=== PATIENT | male | born 1990 | race African-American/Black ===

== ENCOUNTER 2022-09-05 18:18 | Inpatient (IN) | payer SELFPAY ==
--- NOTE | 2022-09-05 18:39 | RAD REPORT ---
EXAM DESCRIPTION: CT - Ct Stroke Brain Wo Cont - 09/05/2022 6:28 pm CLINICAL HISTORY: aphasia COMPARISON: none TECHNIQUE: Computed axial tomography of the head was obtained. All CT scans are performed using dose optimization technique as appropriate and may include automated exposure control or mA/KV adjustment according to patient size. FINDINGS: An intracranial bleed is not seen . The ventricles are normal in caliber. No extra-axial fluid collection is noted. Mild to moderate low-density within periventricular, deep and subcortical white matter likely ischemi c changes secondary to small vessel disease Fluid within the sinuses/ mastoids is not seen. IMPRESSION: No acute intracranial abnormality is seen. If patient's symptoms persist MRI of the bra in would be recommended Meredith the emergency room was notified at 6:35 p.m. September 05, 2022
[2022-09-05 18:48] LABS: Absolute Lymphocytes (CBC) 2.9 K/uL (0.7-4.9); Hematocrit 41.3 % (39.6-49.0); Lymphocytes % 38.8 % (15.3-44.8); MCV 92.3 fL (80-100); MPV 7.4 fL (7.6-11.3); RBC Red Blood Cell Count 4.48 M/uL (4.33-5.43)
[2022-09-05 18:52] LABS: Protime INR 1.05
[2022-09-05 19:09] LABS: Albumin 4.2 g/dL (3.4-5.0); Bilirubin Direct 0.2 mg/dL (0-0.2); Bilirubin Total 0.5 mg/dL (0.2-1.0); Magnesium 2.2 mg/dL (1.6-2.4); Potassium 3.9 mmol/L (3.5-5.1); Protein, Total 7.8 g/dL (6.4-8.2); Troponin High Sensitivity 4.6 pg/mL (<58.9)
[2022-09-05] MEDS ORDERED: FOLIC ACID 5 MG/ML VIAL ONE (19:27)
[2022-09-05 19:45] LABS: Barbiturates NEGATIVE (NEGATIVE); Benzodiazepines NEGATIVE (NEGATIVE); Cocaine NEGATIVE (NEGATIVE); METHAMPHETAM NEGATIVE (NEGATIVE); Methadone NEGATIVE (NEGATIVE); Opiates NEGATIVE (NEGATIVE); Phencyclidine NEGATIVE (NEGATIVE); THC Cannibis NEGATIVE (NEGATIVE)
--- NOTE | 2022-09-05 19:46 | RAD REPORT ---
EXAM DESCRIPTION: Grey Single View09/05/2022 7:00 pm CLINICAL HISTORY: aphasia COMPARISON: none FINDINGS: The lungs appear clear of acute infiltrate. The heart is normal size IMPRESSION: No acute abnormalities displayed
--- NOTE | 2022-09-05 20:31 | RAD REPORT ---
EXAM DESCRIPTION: Kelli Angio09/05/2022 8:17 pm CLINICAL HISTORY: aphasia COMPARISON: None TECHNIQUE: 50 cc Isovue 370 was administered intravenously. 3D MIP reconstruction performed All CT scans are performed using dose optimization technique as appropriate and may include automated exposure control or mA/KV adjustment according to patient size. FINDINGS: The great vessels are unremarkable. Common carotid, internal carotid and external carotid arteries bilaterally are normal caliber. The vertebral arteries are codominant. No significant stenosis. No dissection noted IMPRESSION: Unremarkable exam NASCET criteria used. Mild 0-49% stenosis Moderate 50-69% stenosis Severe 70-99% stenosis
--- NOTE | 2022-09-05 20:34 | RAD REPORT ---
EXAM DESCRIPTION: CTHead angio09/05/2022 8:17 pm CLINICAL HISTORY: aphasia COMPARISON: None TECHNIQUE: CT angiogram of the head was obtained. 3D MIPS reconstruction performed. All CT scans are performed using dose optimization technique as appropriate and may include automated exposure control or mA/KV adjustment according to patient size. FINDINGS: The basilar, internal carotid, anterior cerebral, middle cerebral and posterior cerebral a rteries do not demonstrate a significant stenosis An aneurysm is not seen IMPRESSION: Unremarkable exam
--- NOTE | 2022-09-05 20:36 | ER ---
Nurse's Notes [facility] Name: Parth Landry Age: 32 yrs Sex: Male : 1990 Arrival Date: 09/05/2022 Time: 18:19 Bed 2 Private MD: Diagnosis: Dysphasia and aphasia Presentation: 09/05 18:20 Chief complaint: Spouse and/or significant other states: states that she went to check on her because he had been quiet during the day and noticed he was having trouble speaking/ getting his words out. reports that patient has no medical history other than taking Kratom. Coronavirus screen: Client denies travel out of the [place] in the last 14 days. Ebola Screen: Patient denies exposure to infectious person. Patient denies travel to an Ebola-affected area in the 21 days before illness onset. 18:20 Method Of Arrival: Ambulatory ss 18:20 Acuity: EUNICE 2 ss 18:41 Initial Sepsis Screen: Does the patient meet any 2 criteria? No. Patient's initial ss sepsis screen is negative. Does the patient have a suspected source of infection? No. Patient's initial sepsis screen is negative. Risk Assessment: Do you want to hurt yourself or someone else? Patient reports no desire to harm self or others. Onset of symptoms was September 05, 2022. Triage Assessment: 18:20 General: Appears distressed, Behavior is cooperative, inappropriate for age. General: bp STROKE ALERT, PT TO CT. Pain: Denies pain. EENT: No deficits noted. Neuro: Level of Consciousness is awake, confused. Cardiovascular: Rhythm is sinus rhythm. Respiratory: No deficits noted. GI: No signs and/or symptoms were reported involving the gastrointestinal system. : No signs and/or symptoms were reported regarding the genitourinary system. Derm: No deficits noted. Musculoskeletal: No deficits noted. Historical: - Allergies: 18:42 No Known Allergies; ss - Home Meds: 18:42 Kratom [Active]; ss - PMHx: 18:42 None; ss - PSHx: 18:42 None; ss - Immunization history:: Client reports having NOT received the Covid vaccine. - Social history:: Smoking status: Reported history of juuling and/or vaping. Screenin:45 [facility] ED Fall Risk Assessment (Adult) History of falling in the last 3 months, bp including since admission No falls in past 3 months (0 pts). Abuse screen: Denies threats or abuse. Denies injuries from another. Nutritional screening: No deficits noted. Tuberculosis screening: No symptoms or risk factors identified. Assessment: 18:20 General: SEE TRIAGE NOTE. bp 18:45 Reassessment: ATTENDING AT B/S. PER MD, PT NOT A CANDIDATE FOR TNKASE. bp 19:39 Reassessment: stated patient took 20 kratom capsules, C.VASILIY NOTIFIED. kr3 19:39 Reassessment: patient is unable to answer simple questions A\T\O X 0. Reassessment: kr3 patient A \T\ O x 2 name and bday, also knows 's name as well. 20:22 Reassessment: Patient appears in no apparent distress at this time. Patient and/or kr3 family updated on plan of care and expected duration. Pain level reassessed. patient still unable to answer simple question A \T\ O x0. Vital Signs: 18:32 Pulse 87; Resp 15; Temp 98.1(TE); Pulse Ox 97% on R/A; Weight 76.2 kg; Height 5 ft. 6 ss in. (167.64 cm); 18:47 BP 119 / 77; Pulse 77; Resp 16; kr3 19:15 BP 117 / 83; Pulse 65; Resp 18; Pulse Ox 98% ; kr3 20:00 BP 121 / 79; Pulse 64; Resp 18; Pulse Ox 98% on R/A; kr3 23:01 BP 111 / 70; Pulse 62; Resp 19; Pulse Ox 98% on R/A; kd3 18:32 Body Mass Index 27.11 (76.20 kg, 167.64 cm) NIH Stroke Scale Scores: 18:40 [facility]SS [facility]: [facility] ED Course: 18:19 Patient arrived in ED. mr 18:23 Tom Vee PA is PHCP. cp 18:23 Rhys Guallpa MD is Attending Physician. cp 18:30 CT Stroke Brain w/o Contrast In Process Unspecified. EDMS 18:33 Inserted saline lock: 20 gauge in left antecubital area, using aseptic technique. ss ,using aseptic technique. Insertion by Concepción, ophthalmic medical technologist Blood collected. 18:42 Triage completed. ss 18:42 Arm band placed on left wrist. ss 18:43 Nakul Rehman, RN is Primary Nurse. bp 18:45 Patient has correct armband on for positive identification. Bed in low position. Call bp light in reach. Side rails up X2. Adult w/ patient. 19:01 Stroke CXR 1 View In Process Unspecified. EDMS 20:21 CT Head Angio In Process Unspecified. EDMS 20:21 CT Neck Angio In Process Unspecified. EDMS 20:35 Shawn Hitchcock FNP-C is Hospitalizing Provider. cp 21:31 Daniel Powell MD is Hospitalizing Provider. la1 23:07 No provider procedures requiring assistance completed. Patient admitted, IV remains in kd3 place. Administered Medications: 19:20 Drug: foLIC Acid 1 mg Route: IVPB; Site: left antecubital; kr3 23:09 Follow up: IV Status: Completed infusion kd3 20:49 Drug: NS 0.9% 1000 ml Route: IV; Rate: 1 bolus; Site: left antecubital; kr3 23:08 Follow up: IV Status: Completed infusion; IV Intake: 1000ml kd3 22:47 Drug: NS 0.9% 1000 ml Route: IV; Rate: 125 ml/hr; Site: left antecubital; kr3 23:09 Follow up: IV Status: Infusion continued kd3 Medication: 18:45 VIS not applicable for this client. bp Intake: 23:08 IV: 1000ml; Total: 1000ml. kd3 Outcome: 20:35 Decision to Hospitalize by Provider. cp 23:07 Admitted to Med/surg kd3 23:07 Condition: stable 23:07 Discharge instructions given to patient, Instructed on the need for admit, Demonstrated understanding of instructions, follow-up care. 23:16 Patient left the ED. kd3 NIH Stroke Scale - NIH Stroke Score Date: 09/05/2022 Time: 18:40 Total Score = 4 1a. Level of Consciousness (LOC) - 0(Alert) 1b. Level of Consciousness (LOC) (Month \T\ Age) - 2(Neither) 1c. LOC Commands (Open \T\ Closes Eyes/Special Services Agent) - 0(Both) 2. Best Gaze (Lateral Gaze Paresis) - 0(Normal) 3. Visual Field Loss - 0(No visual loss) 4. Facial Palsy - 0(Normal) 5a. Left Arm: Motor (10-second hold) - 0(No drift) 5b. Right Arm: Motor (10-second hold) - 0(No drift) 6a. Left Leg: Motor (5-second hold - always test supine) - 0(No drift) 6b. Right Leg: Motor (5-second hold - always test supine) - 0(No drift) 7. Limb Ataxia (finger/nose \T\ heel/benitez - test with eyes open) - 0(Absent) 8. Sensory Loss (pinprick arms/legs/face) - 0(Normal) 9. Best Language: Aphasia (description/naming/reading) - 1(Mild to moderate aphasia) 10. Dysarthria (speech clarity - read or repeat words) - 1(Mild to Moderate) 11. Extinction and Inattention (visual/tactile/auditory/spatial/personal) - 0(No abnormality) Initials: [facility] Signatures: Dispatcher [employer] JOHNNYMS PayneRebeca mr MunsonNancy zaragoza, RN RN ss Shawn Hitchcock, FLARE BREAKER-C FLARE BREAKER-Cla1 Tom Vee PA PA cp Peltier, Brian, RN RN Nathalie Doty, RN RN kd3 Alesha Clemons, RN RN kr3
--- NOTE | 2022-09-05 20:36 | EDPHYS ---
Physician Documentation [facility] Name: Parth Landry Age: 32 yrs Sex: Male : 1990 Arrival Date: 09/05/2022 Time: 18:19 Bed 2 Private MD: ED Physician Rhys Guallpa HPI: 09/05 18:24 The patient's problem is reported as weakness, left side, difficulty speaking. cp 18:25 Onset: The symptoms/episode began/occurred today, about 1745. Duration: This was a cp single incident. Context: the episode(s) was witnessed, by family, father, , symptoms became apparent on September 05, 2022, occurred at home. Patient's baseline: Neuro: alert and fully oriented, Motor: no deficits, Ambulation: walks without assistance, Speech: normal. 18:25 Associated signs and symptoms: Pertinent positives: confusion, Father reports patient cp seemed weak on left side, Pertinent negatives: abdominal pain, chest pain, headache, numbness. Historical: - Allergies: 18:42 No Known Allergies; ss - Home Meds: 18:42 Kratom [Active]; ss - PMHx: 18:42 None; ss - PSHx: 18:42 None; ss - Immunization history:: Client reports having NOT received the Covid vaccine. - Social history:: Smoking status: Reported history of juuling and/or vaping. ROS: 18:28 Constitutional: Negative for body aches, chills, fever, poor PO intake. cp 18:28 Eyes: Negative for injury, pain, redness, and discharge. cp 18:28 Cardiovascular: Negative for chest pain. 18:28 Respiratory: Negative for cough, shortness of breath, wheezing. 18:28 Abdomen/GI: Negative for abdominal pain, vomiting, diarrhea, constipation. 18:28 Neuro: Positive for altered mental status, speech changes, Negative for dizziness, headache. 18:28 All other systems are negative. Exam: 18:33 Constitutional: The patient appears in no acute distress, alert, awake, cp non-diaphoretic, non-toxic, well developed, well nourished. 18:33 Head/Face: Normocephalic, atraumatic. cp 18:33 Eyes: Periorbital structures: appear normal, Pupils: equal, round, and reactive to light and accomodation, Extraocular movements: intact throughout, Conjunctiva: normal, no exudate, no injection, Sclera: no appreciated abnormality, Lids and lashes: appear normal, bilaterally. 18:33 ENT: External ear(s): are unremarkable, Nose: is normal, Mouth: Lips: moist, Oral mucosa: moist, Posterior pharynx: is normal, airway is patent, no erythema, no exudate, Voice: is normal. 18:33 Chest/axilla: Inspection: normal. 18:33 Cardiovascular: Rate: normal, Rhythm: regular, Heart sounds: murmur, not appreciated, Edema: is not appreciated, JVD: is not appreciated. 18:33 Respiratory: the patient does not display signs of respiratory distress, Respirations: normal, Breath sounds: are clear throughout, no decreased breath sounds, no stridor, no wheezing. 18:33 Abdomen/GI: Inspection: abdomen appears normal, Bowel sounds: active, all quadrants, cp Palpation: abdomen is soft and non-tender, in all quadrants. 18:33 Back: pain, is absent, ROM is normal. 18:33 Skin: no rash present. 18:33 Neuro: Mentation: able to follow commands, slow to respond, Motor: moves all fours, strength is normal, Sensation: is normal. 18:37 Radiologist reports: no acute findings [facility] Vital Signs: 18:32 Pulse 87; Resp 15; Temp 98.1(TE); Pulse Ox 97% on R/A; Weight 76.2 kg; Height 5 ft. 6 ss in. (167.64 cm); 18:47 BP 119 / 77; Pulse 77; Resp 16; kr3 19:15 BP 117 / 83; Pulse 65; Resp 18; Pulse Ox 98% ; kr3 20:00 BP 121 / 79; Pulse 64; Resp 18; Pulse Ox 98% on R/A; kr3 23:01 BP 111 / 70; Pulse 62; Resp 19; Pulse Ox 98% on R/A; kd3 18:32 Body Mass Index 27.11 (76.20 kg, 167.64 cm) NIH Stroke Scale Scores: 18:40 NIHSS Score: 4 [facility] MDM: 18:24 Patient medically screened. 18:39 ED course: consult with DR Cordero who recommends TNK. [facility] 18:58 Data reviewed: vital signs. ED course: 42-year-old male evaluated by me at bedside. sp3 Received word that patient's initial expressive aphasia was rapidly resolving. On my exam it was mild and occasional at best. Approximately 10 minutes afterwards patient had completely normal speech and 0 deficits was with an NIH stroke scale of 0. Discussed pros and cons of giving lytic medication and and patient both agree that they want to decline the medication at this time. It was noted to patient that our on-call neurologist Dr. Cordero was recommending that we go ahead and administer medication given the fact that if he is potentially having a stroke that he would save brain cells. I communicated this recommendation to the family he still agree that because his symptoms are resolving they want to wait. I explained to the patient risks and benefits of giving and not giving lytic medication including permanent brain loss, disability, , other immobility and they still agree and are politely declining medication at this time. I explained the fact that this is a joint decision and they still standby there preference and agree that if he worsens within the 4-hour window that they would be more amenable to receiving medication. This conversation was witnessed by Tom vee who is the primary midlevel provider taking care of the patient. She will be sent for CT angiogram and be admitted for serial neurological exams and MRI/MRA when available.. 19:48 ED course: Reevaluation: Patient with aphasia, unable to express name and date of cp . No focal deficits, no paresthesias noted. Romberg negative. Patient unable to complete finger to nose and heel/benitez test. Recommendation for TNK made. at bedside declines at this time and wants to discuss with [id number]. 20:31 ED course: spoke with spouse who is at bedside and does not want to administer TNK at this time. Will admit for continued observation. 09/05 18:23 Order name: Basic Metabolic Panel; Complete Time: 20:00 cp 09/05 20:00 Interpretation: Normal except: BUN 22. cp 09/05 18:23 Order name: CBC with Diff; Complete Time: 20:00 cp 09/05 20: Interpretation: Normal except: MPV 7.4. cp 09/05 18:23 Order name: Hepatic Function; Complete Time: 20:00 cp 09/05 20: Interpretation: Normal except: GLOB 3.6. cp 09/05 18:23 Order name: High Sensitivity Troponin; Complete Time: 20:00 cp 09/05 18:23 Order name: Magnesium; Complete Time: 20:00 cp 09/05 18:23 Order name: Protime (+inr); Complete Time: 20:00 cp 09/05 18:23 Order name: Ptt, Activated; Complete Time: 20:00 cp 09/05 18:23 Order name: UDS; Complete Time: 20:00 cp 09/05 20:01 Interpretation: Reviewed. cp 09/05 18:23 Order name: CT Stroke Brain w/o Contrast; Complete Time: 20:00 cp 09/05 18:23 Order name: Stroke CXR 1 View; Complete Time: 20:00 cp 09/05 18:48 Order name: Glucose, Ancillary Testing; Complete Time: 20:00 EDMS 09/05 19:03 Order name: CT Head Angio; Complete Time: 20:36 cp 09/05 19:03 Order name: CT Neck Angio; Complete Time: 20:34 cp 09/05 19:18 Order name: SARS RAPID; Complete Time: 21:07 la1 09/05 18:23 Order name: EKG; Complete Time: 18:24 cp 09/05 18:23 Order name: Accucheck; Complete Time: 18:44 cp 09/05 18:23 Order name: Cardiac monitoring; Complete Time: 18:44 cp 09/05 18:23 Order name: EKG - Nurse/Tech; Complete Time: 18:48 cp 09/05 18:23 Order name: IV Saline Lock; Complete Time: 18:44 cp 09/05 18:23 Order name: Labs collected and sent; Complete Time: 18:44 cp 09/05 18:23 Order name: NPO; Complete Time: 20:22 cp 09/05 18:23 Order name: O2 Per Protocol; Complete Time: 18:44 cp 16 18:23 Order name: O2 Sat Monitoring; Complete Time: 18:44 cp 09/05 18:23 Order name: Stroke Swallow Screen; Complete Time: 23:07 cp Administered Medications: 19:20 Drug: foLIC Acid 1 mg Route: IVPB; Site: left antecubital; kr3 23:09 Follow up: IV Status: Completed infusion kd3 20:49 Drug: NS 0.9% 1000 ml Route: IV; Rate: 1 bolus; Site: left antecubital; kr3 23:08 Follow up: IV Status: Completed infusion; IV Intake: 1000ml kd3 22:47 Drug: NS 0.9% 1000 ml Route: IV; Rate: 125 ml/hr; Site: left antecubital; kr3 23:09 Follow up: IV Status: Infusion continued kd3 Disposition Summary: 09/05/22 20:35 Hospitalization Ordered Hospitalization Status: Observation cp Location: Telemetry/MedSurg (observation) cp Condition: Stable cp Problem: new cp Symptoms: are unchanged cp Bed/Room Type: Standard cp Provider: Daniel Powell(09/05/22 21:31) la1 Room Assignment: [facility](09/05/22 22:31) Diagnosis - Dysphasia and aphasia cp Forms: - Medication Reconciliation Form cp - SBAR form cp NIH Stroke Scale - NIH Stroke Score Date: 09/05/2022 Time: 18:40 Total Score = 4 1a. Level of Consciousness (LOC) - 0(Alert) 1b. Level of Consciousness (LOC) (Month \T\ Age) - 2(Neither) 1c. LOC Commands (Open \T\ Closes Eyes/Auto Rental Clerk) - 0(Both) 2. Best Gaze (Lateral Gaze Paresis) - 0(Normal) 3. Visual Field Loss - 0(No visual loss) 4. Facial Palsy - 0(Normal) 5a. Left Arm: Motor (10-second hold) - 0(No drift) 5b. Right Arm: Motor (10-second hold) - 0(No drift) 6a. Left Leg: Motor (5-second hold - always test supine) - 0(No drift) 6b. Right Leg: Motor (5-second hold - always test supine) - 0(No drift) 7. Limb Ataxia (finger/nose \T\ heel/benitez - test with eyes open) - 0(Absent) 8. Sensory Loss (pinprick arms/legs/face) - 0(Normal) 9. Best Language: Aphasia (description/naming/reading) - 1(Mild to moderate aphasia) 10. Dysarthria (speech clarity - read or repeat words) - 1(Mild to Moderate) 11. Extinction and Inattention (visual/tactile/auditory/spatial/personal) - 0(No abnormality) Initials: jmm Signatures: Dispatcher [employer] EDMS Tyrel Arthur PA PA jmm Smirch, Shelby, RENE LÓPEZ ss Shawn Hitchcock, DIRECTOR PRODUCT DEVELOPMENT-C DIRECTOR PRODUCT DEVELOPMENT-Cla1 Tom Vee PA PA cp Garcia, Cindy, RN RN cg Rhys Guallpa MD MD sp3 Alesha Clemons RN RN kr3 Nathalie Joshua RN kd3 Corrections: (The following items were deleted from the chart) : 20:35 Shawn Hitchcock cp la1 : 20:35 cp cg
[2022-09-05] MEDS ORDERED: NA CHLORIDE 0.9% 2,000 ML ONE (20:50)
[2022-09-05 20:55] LABS: SARS-CoV-2 Antigen Rapid Res Negative (Negative)
--- NOTE | 2022-09-05 22:10 | P.HP ---
Certification for Inpatient Patient admitted to: Observation With expected LOS: <2 Midnights Patient will require the following post-hospital care: None Practitioner: I am a practitioner with admitting privileges, knowledge of patient current condition, hospital course, and medical plan of care. Services: Services provided to patient in accordance with Admission requirements found in Title 42 Section 412.3 of the Code of Federal Regulations Patient History Date of Service: 09/05/22 Reason for admission: Expressive aphasia History of Present Illness: 32-year-old otherwise healthy male presents to the emergency department with expressive aphasia. Last known well 1730 per . She reports after that she noticed patient was having difficulty with his speech and brought him into the emergency department. Patient did admit to taking approximately 20 kratom capsules throughout the day which is significantly more than he typically takes. CT head without contrast negative for acute findings, patient arrived within the window for TNK after extensive discussion with ED staff including physician/PA patient declined to receive TNK although it was recommended by neurology. Patient's labs were unremarkable CT head without contrast negative for acute findings CT head and neck angio negative for large vessel occlusion or significant carotid stenosis. Patient still with ongoing expressive aphasia at this time no other neurological deficits noted, NIH 2. Will admit under observation for expressive aphasia. - Past Medical/Surgical History -: None -: None Psychosocial/ Personal History: Patient lives at home with his - Family History Family History: Reviewed- Non-Contributory - Social History Smoking Status: Never smoker Alcohol use: No CD- Drugs: Yes Caffeine use: No Place of Residence: Home Review of Systems 10-point ROS is otherwise unremarkable Neurological: Change in Speech Physical Examination - Physical Exam General: Alert, In no apparent distress, Oriented x3 HEENT: Atraumatic, PERRLA, Mucous membr. moist/pink, EOMI, Sclerae nonicteric Neck: Supple, 2+ carotid pulse no bruit, No LAD, Without JVD or thyroid abnormality Respiratory: Clear to auscultation bilaterally, Normal air movement Cardiovascular: Regular rate/rhythm, Normal S1 S2 Capillary refill: <2 Seconds Gastrointestinal: Normal bowel sounds, No tenderness Musculoskeletal: No tenderness Integumentary: No rashes Neurological: Normal gait, Normal strength at 5/5 x4 extr, Normal tone, Normal affect, Abnormal speech (Expressive aphasia) - Studies Laboratory Data (last 24 hrs) 09/05/22 18:30: PT 11.5, INR 1.05, APTT 30.0 09/05/22 18:30: WBC 7.40, Hgb 13.7, Hct 41.3, Plt Count 256 09/05/22 18:30: Sodium 137, Potassium 3.9, BUN 22 H, Creatinine 1.09, Glucose 104, Magnesium 2.2, Total Bilirubin 0.5, AST 15, ALT 24, Alkaline Phosphatase 73 Assessment and Plan - Plan Assessment: Expressive aphasia rule out CVA Kratom use/abuse Plan: Expressive aphasia rule out CVA CT head without contrast negative, CT angio head and neck negative for large vessel occlusion or significant carotid stenosis. MRI, echo ordered. Neurology consult in place along with speech therapy. Aspirin, statin ordered. Kratom use/abuse Counseled on need for cessation. DVT PPX: Lovenox Code status: Full Discharge Plan: Home Plan to discharge in: 24 Hours - Advance Directives Does patient have a Living Will: No Does patient have a Durable POA for Healthcare: No - Code Status/Comfort Care Code Status Assessed: Yes (Full code) Critical Care: No Time Spent Managing Pts Care (In Minutes): 70
[2022-09-05 23:43] VITALS: BMI 27.1
[2022-09-06] MEDS ORDERED: ONDANSETRON 4 MG/2 ML VIAL IV PRN (00:13)
[2022-09-06] MEDS ORDERED: NA CHLORIDE 0.9% 1,000 ML IV SCH (00:13)
[2022-09-06 00:16] VITALS: O2SAT 98
[2022-09-06 04:16] LABS: Absolute Lymphocytes (CBC) 2.1 K/uL (0.7-4.9); Hematocrit 38.9 % (39.6-49.0); Lymphocytes % 30.3 % (15.3-44.8); MCV 93.1 fL (80-100); MPV 7.6 fL (7.6-11.3); RBC Red Blood Cell Count 4.18 M/uL (4.33-5.43)
[2022-09-06 04:40] LABS: Potassium 3.9 mmol/L (3.5-5.1); T4,Total 6.8 ug/dL (4.5-12.1); Thyroid Stimulating Hormone 0.72 uIU/mL (0.358-3.740)
[2022-09-06] MEDS ORDERED: ASPIRIN EC 81 MG TAB PO SCH (09:00)
[2022-09-06] MEDS ORDERED: ENOXAPARIN 40 MG/0.4 ML SQ SCH (09:00)
--- NOTE | 2022-09-06 09:45 | P.PN ---
Subjective Date of Service: 09/06/22 Chief Complaint: Expressive aphasia Patient is still has expressive dysphagia present at the bedside apparently the patient takes kratom, [id number] stimulant shoulders and energy booster colon cancer herbal laxative abstract that comes from leaves of an [place]/patient developed sudden onset of expressive dysphasia sorensen no other neurological deficit MRIs are pending no prior history of similar problem no other medical issue Review of Systems 10-point ROS is otherwise unremarkable Physical Examination - Vital Signs Temperature: 98.9 F Blood Pressure: 106/61 Pulse: 65 Respirations: 15 Pulse Ox (%): 97 - Physical Exam General: Alert, In no apparent distress, Oriented x3 Neurological: Normal speech, Normal strength at 5/5 x4 extr, Sensation intact, Cranial nerves 3-12 intact (Annual nerves are grossly intact obvious weakness of extremities obey commands) - Studies Laboratory Data (last 24 hrs) 09/05/22 18:30: PT 11.5, INR 1.05, APTT 30.0 09/05/22 18:30: WBC 7.40, Hgb 13.7, Hct 41.3, Plt Count 256 09/05/22 18:30: Sodium 137, Potassium 3.9, BUN 22 H, Creatinine 1.09, Glucose 104, Magnesium 2.2, Total Bilirubin 0.5, AST 15, ALT 24, Alkaline Phosphatase 73 Assessment And Plan - Current Problems (Diagnosis) (1) Dysphasia Current Visit: Yes Status: Acute - Plan Patient is 32 years of age admitted with expressive dysphasia/MRIs of the head are pending otherwise No obvious evidence of a stroke no cranial nerve deficit problem swallow Kameron's labs all unremarkable head CT is also negative Addendum at 12:27 PM Patient now is very alert responsive cooperative his speech is back to normal MRI result Focal stenoses at the superior cortical branch and insular segment of M2 which corresponds with the area of known infarct. Current with the patient he became aphasic around 6 PM on 216. Neurologist discussed with the emergency room about MOSHE the emergency physician discussed with the patient and the refused treatment at that time/after Mulu rodriguez about the stroke today history discussed with the patient regarding transfer to a tertiary care facility for a possible thrombectomy present at the bedside they were both unsure if the speech is back to normal
--- NOTE | 2022-09-06 09:53 | RAD REPORT ---
EXAM DESCRIPTION: MRI - Brain W/Wo Cont - 09/06/2022 9:17 am CLINICAL HISTORY: expressive aphasia COMPARISON: MRA Head Wo Cont dated 09/06/2022; Head angio dated 09/05/2022; Neck Angio dated 09/05/2022 ; Ct Stroke Brain Wo Cont dated 09/05/2022 TECHNIQUE: Sagittal T1-weighted images were obtained along with PD/heavily T2-weighted and T2-FLAIR images. Axial DWI and ADC mapping sequences were also obtained along with coronal heavily T2-weighted images were obtained. Post contrast enhanced images were obtained. FINDINGS: Moderate sized left MCA territory infarct involving the left insula, portions of the left frontal lobe, and a punctate left parietal lobe infarct. Left basal ganglia infarcts also present. No extra-axial fluid collections. Signal voids are seen as a normal finding in the major intracranial v essels. No significant white matter disease. No abnormal enhancement. No mastoid effusion.Paranasal sinuses are clear. IMPRESSION: Moderate sized acute left MCA territory infarct. No abnormal enhancement.
--- NOTE | 2022-09-06 09:56 | RAD REPORT ---
EXAM DESCRIPTION: MRI - MRA Neck W/Wo Cont - 09/06/2022 9:17 am CLINICAL HISTORY: Expressive aphasia COMPARISON: 09/05/2022 TECHNIQUE: Magnetic resonance angiogram of the neck was performed. 17cc MultiHance was administered intravenously. 3D MIPS reconstruction performed FINDINGS: The bilateral common carotid, internal carotid and external carotid arteries do not demons trate a significant stenosis. No dissection identified The vertebral arteries are codominant without visualization of an abnormality. IMPRESSION: No hemodynamically significant stenosis or dissection identified. NASCET criteria used. Mild 0-49% stenosis Moderate 50-69% stenosis Severe 70-99% stenosis
--- NOTE | 2022-09-06 10:25 | RAD REPORT ---
EXAM DESCRIPTION: MRI - MRA Head Wo Cont - 09/06/2022 9:16 am CLINICAL HISTORY: expressive aphasia CVA COMPARISON: Head angio dated 09/05/2022 FINDINGS: 3D noncontrast [id number] MR angiography of the [place] was performed. There is also a moderate narrowing at the proximal aspect of the insular M2 segment of the left MCA . There is also a high-grade focal stenosis at the superior cortical branch of M2. The right MCA is pa tent. The vertebral and basilar artery as well as the posterior cerebral arteries are patent. No aneu rysm is identified. The anterior cerebral arteries are both patent. IMPRESSION: Focal stenoses at the superior cortical branch and insular segment of M2 which correspon ds with the area of known infarct.
[2022-09-06 12:30] VITALS: BP 106/61; TEMP 98.9
--- NOTE | 2022-09-06 13:42 | P.DS ---
Admission Date: 09/06/22 Discharge Date: 09/06/22 Disposition: ROUTINE DISCHARGE Discharge Condition: GOOD Reason for Admission: Expressive aphasia - Problems (1) Stroke Status: Acute Qualifiers: Precerebral and cerebral artery: middle cerebral artery (2) Patent foramen ovale Status: Acute Brief History of Present Illness: Patient is 32 years of age presented with expressive dysphagia started at 6 PM on 09/05/2022 Hospital Course: Stroke was confirmed in the middle cerebral artery M2 region by MRI patient made a full recovery spontaneously without any treatment refused TNK was seen by neurologist Dr. Cordero The time of discharge there was no apparent neurological deficit no expressive dysphasia Dr. Cordero had a discussion with him he refused thrombectomy transfer to a tertiary care hospital Patient has been advised not to use the supplements [id number] also been instructed to use aspirin and folic acid daily cholesterol levels did not warrant any treatment Dr. Kenyon called me at 3.52 PM 09/06/22, PT has patent foramen ovale, high risk. Anticoagulate with Eliquis. Needs closure of PFO. Called and patient at [phone], informaed of PFT and to take Eliquis. Pt to apply for the free trial offer of Eliquis.pres faxed to [email or web address]. Phone number to contact the company for Eliquis provided. Advised to f/u with cardiology or my self to discuss further options Vital Signs/Physical Exam: Temp Pulse Resp BP Pulse Ox 98.9 F 65 15 106/61 97 09/06/22 12:29 09/06/22 12:29 09/06/22 12:29 09/06/22 12:29 09/06/22 12:29 Laboratory Data at Discharge: WBC 6.80 K/uL (4.3-10.9) 09/06/22 03:56 Hgb 13.1 g/dL (13.6-17.9) L 09/06/22 03:56 Hct 38.9 % (39.6-49.0) L 09/06/22 03:56 Plt Count 226 K/uL (152-406) 09/06/22 03:56 PT 11.5 SECONDS (9.5-12.5) 09/05/22 18:30 INR 1.05 09/05/22 18:30 APTT 30.0 SECONDS (24.3-36.9) 09/05/22 18:30 Sodium 139 mmol/L (136-145) 09/06/22 03:56 Potassium 3.9 mmol/L (3.5-5.1) 09/06/22 03:56 BUN 18 mg/dL (7-18) 09/06/22 03:56 Creatinine 0.97 mg/dL (0.70-1.30) 09/06/22 03:56 Glucose 98 mg/dL (74-106) 09/06/22 03:56 Magnesium 2.2 mg/dL (1.6-2.4) 09/05/22 18:30 Total Bilirubin 0.5 mg/dL (0.2-1.0) 09/05/22 18:30 AST 15 U/L (15-37) 09/05/22 18:30 ALT 24 U/L (16-61) 09/05/22 18:30 Alkaline Phosphatase 73 U/L (45-117) 09/05/22 18:30 Triglycerides 53 mg/dL (<150) 09/06/22 03:56 Cholesterol 141 mg/dL (<200) 09/06/22 03:56 HDL Cholesterol 64 mg/dL (40-60) H 09/06/22 03:56 Cholesterol/HDL Ratio 2.20 09/06/22 03:56 Home Medications: Apixaban [Eliquis] 5 mg PO BID 30 Days #60 tab 09/06/22 New Medications: Apixaban [Eliquis] 5 mg PO BID 30 Days #60 tab Followup: NONE,NONE [Primary Care Provider] - Sam Cordero MD [ASSOCIATE-ACTIVE - CAN ADMIT] -
[2022-09-06] MEDS ORDERED: ATORVASTATIN 20 MG TAB PO SCH (21:00)
--- NOTE | 2022-09-07 01:44 | CON ---
Reason For Consultation: Consultation called because of possible stroke. History Of Present Illness: Mr. 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 That occurred around 05:30. The patient's felt, she is in medical team, that he was having a stroke. He was basil t to [facility]. Prior to the event, the patient and his admitted they had been taking a stimulant, apparently something related to a narcotic called Kratom. He normally takes about 4 or 5 pills a day, but earlier on the day of admission, he took 20 of the capsules and was also drinking energy drinks. His initial head CT scan was negative for any acute ischemic or hemorrhagic change. The patient's condition was discussed with physician medical office assistant and the emergency room physician and the recommendation was that the patient was well within the window for TNKs as he [facility] at 06:19. However, the patient and his refused to receive the TNKs and the patient w as admitted with hydration, aspirin, and for additional risk modification. His head CT angiogram was unremarkable. His neck CT angiogram was also unremarkable. However, the following day, his symptom s did tend to fluctuate, but he felt that he was getting back almost to normal. He did have a brain MRI, which showed a moderate-sized left MCA territory infarct. It was also noted that the area invol bright the insular portion of the left frontal lobe, the left lateral lobe, left basal ganglia. There w as no hemorrhagic conversion. His neck magnetic resonance angiogram showed no significant stenosis. He has a brain magnetic resonance angiogram that identified focal stenosis of the superior cortical branch and insular segment of the M2, which was noted to correspond with the area of his infarction. It is to be noted that clinically the patient actually has resolved to the point that there are no s ignificant noticeable deficits, although he does have some difficulty repeating complex words. For e bere, he was unable to clearly state [employer]. Otherwise, cranial nerves are fully i ntact, strength fully intact, and sensation fully intact. He did receive hydration and aspirin along with Lipitor and Lovenox. Past Medical History: No treated past medical history. Social History: No alcohol or IV drug use. He uses a lot of steroids including the Kratom and energ y drinks along with vaping. He lives with . Family History: No family history of stroke. Past Surgical History: None. Review of Systems: Denies any fever, chills, nausea, vomiting, myalgias, arthralgias, rash, headache, or weight change. No psychiatric complaints. No gastrointestinal complaints. No genitourinary issues. No dermatolog ical issues. Physical Examination: Vital Signs: Blood pressure 106/61, pulse 65, respiratory rate 15, temperature 98.9, and oxygen satu ration 97%. Weight 168 pounds, height 5 feet 6, BMI 27.1. General: Normal. HEENT: Normocephalic, atraumatic. Sclerae anicteric. Oropharynx is pink and moist. Neck: Supple. Chest: Clear. Heart: Regular. Extremities: No edema or cyanosis. Neurologic: Alert and oriented to situation, place, and person. Follows all commands appropriately. No obvious cranial nerve deficits on full exam. On motor exam, 5/5 proximally and distally. Senso ry exam intact in upper and lower extremities. Coordination intact in upper and lower extremities. Gait intact. Laboratory Studies: Complete blood count with differential unremarkable. Coagulation panel is randall l. Chemistries are all unremarkable. Basic metabolic panel unremarkable. HDL cholesterol 64, LDL c holesterol 66, triglycerides 153, and total cholesterol 141. TSH 0.72, T4 6.8. Glucose ranged 98 to 104. Calcium 8.7. Magnesium 2.2. Urine drug screen negative. COVID testing is negative. It shou ld be noted that there was a reported echocardiogram, although the report is not in the system that t he patient had a large PFO and it was felt that may be a contributing factor for his stroke. Assessment: Mr. Landry is a 32-year-old patient with an apparent stroke from which he has clinically resolved despite the findings of the stroke suggesting large middle cerebral artery with focal stenos is in part and also the echocardiogram suggested patent foramen ovale. It is unclear, however, why t he patient has no clinical deficits and yet the MRI is as reported. He does have a history of using a large number of reported stimulants. Plan: 1.He will be discharged home on aspirin 81 mg daily and Lipitor 40 mg at bedtime. 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 3.I have strongly advised to stop drinking the energy drinks and using those stimulant capsules. 4.He should follow up in Dr. Cordero's clinic within the month. ANDREIA Voice ID: [id number] Report ID: [id number]
--- NOTE | 2022-09-09 06:59 | ECHO ---
HEIGHT: 5 ft 6 in WEIGHT: 168 lb 0 oz DATE OF STUDY: 09/06/[address]: Shawn Hitchcock NP 2-DIMENSIONAL: YES M.MODE: YES DOPPLER: YES COLOR FLOW: YES TDS: PORTABLE: YES DEFINITY: BUBBLE STUDY: DIAGNOSIS: STROKE CARDIAC HISTORY: CATHERIZATION: SURGERY: PROSTHETIC VALVE: PACEMAKER: MEASUREMENTS (cm) DIASTOLIC (NORMALS) SYSTOLIC (NORMALS) IVSd 0.9 (0.6-1.2) LA Diam 3.4 (1.9-4.0) LVEF 57% LVIDd 4.9 (3.5-5.7) LVIDs 3.4 (2.0-3.5) %FS 30% LVPWd 1.1 (0.6-1.2) Ao Diam 2.9 (2.0-3.7) 2 DIMENSIONAL ASSESSMENT: RIGHT ATRIUM: NORMAL LEFT ATRIUM: NORMAL RIGHT VENTRICLE: NORMAL LEFT VENTRICLE: NORMAL TRICUSPID VALVE: MILD TRICUSPID REGURGITATION MITRAL VALVE: TRACE MITRAL REGURGITATION PULMONIC VALVE: MILD PULMONIC INSUFFICIENCY AORTIC VALVE: NORMAL PERICARDIAL EFFUSION: NONE AORTIC ROOT: NORMAL LEFT VENTRICULAR WALL MOTION: NORMAL DOPPLER/COLOR FLOW: SEE BELOW COMMENTS: 1. NORMAL LEFT VENTRICULAR EJECTION FRACTION 55-60% 2. NORMAL WALL MOTION 3. NORMAL DIASTOLIC FUNCTION 4. MILD TRICUSPID REGURGITATION, MITRAL REGURGITATION 5. BUBBLE STUDY WAS POSITIVE FOR INTRACARDIAC SHUNT, LIKELY PATENT FORAMNE OVALE TECHNOLOGIST: AMAN POLLARD
== END 2022-09-06 14:44 | disposition home or self-care (01) | DRG 65 ==
LOC: ER 18:18 → 4TH 22:03 → OBSVTOIN 09-06 10:36
PROVIDERS: ADMIT Internal Medicine Sleep Medicine; ATTEND Internal Medicine Sleep Medicine
DX: I63.412 Cerebral infarction due to embolism of left middle cerebral artery (principal); G81.94 Hemiplegia, unspecified affecting left nondominant side; Q21.12 Patent foramen ovale; R47.01 Aphasia; F11.10 Opioid abuse, uncomplicated; F17.290 Nicotine dependence, other tobacco product, uncomplicated; R29.704 NIHSS score 4; R47.02 Dysphasia; T40.691A Poisoning by other narcotics, accidental (unintentional), initial encounter; Z71.51 Drug abuse counseling and surveillance of drug abuser; Z53.29 Procedure and treatment not carried out because of patient's decision for other reasons; Z79.01 Long term (current) use of anticoagulants; Z28.310 Unvaccinated for COVID-19; Z20.822 Contact with and (suspected) exposure to COVID-19
CPT/HCPCS: 36415; 70450; 70496; 70498; 70544; 70549; 70553; 71045; 80048; 80061; 80076; 80307; 82947; 83735; 84436; 84443; 84484; 85025; 85610; 85730; 87811; 92523; 93306; 96365; 96366; 97161; 99285; A9577; G0378; J1650; J7030; Q9967